=== PATIENT | female | born 1995 | race Caucasian/White ===

== ENCOUNTER → 2017-05-31 | Outpatient (REF) | payer OTHER ==
[~2017-05-31] MED LIST: MICR1TAB11 PO
[2017-05-31 19:26] LABS: PERCENT SATURATION 25.5 % (13.2-37.4)
== END ==
LOC: M LAB REF 17:35
PROVIDERS: ATTEND Internal Medicine
DX: K29.70 Gastritis, unspecified, without bleeding (principal)

== ENCOUNTER 2017-07-09 10:33 | Outpatient (CLI) | payer BC, OTHER ==
[~2017-07-09] VITALS: Ht 175.3 cm; Wt 72.6 kg
[2017-07-09] MEDS ORDERED: NS 1,000 ML IV ONE (11:00)
[2017-07-09] MEDS ORDERED: PROPOFOL 200 MG/20 ML VIAL As Ordered ONE (12:29)
[2017-07-09] MEDS ORDERED: LIDOCAINE 2% INJ 100 MG/5 ML SDV (FOR ANES.) As Ordered ONE (12:29)
--- NOTE | 2017-07-09 12:41 | ROOR ---
Patient Name: Arsen Naidu Procedure Date: 07/09/2017 12:20 PM Date of : 1995 Age: 21 Room: [facility] Gender: Female Note Status: Finalized Procedure: Upper GI endoscopy Indications: Suspected esophageal reflux, Suspected gastro-esophageal reflux disease, Weight loss Providers: Jasper Londono MD Referring MD: Jillian Pineda DO Requesting Provider: Medicines: Monitored Anesthesia Care Complications: No immediate complications. Procedure: Pre-Anesthesia Assessment: - Prior to the procedure, a History and Physical was performed, and patient medications and allergies were reviewed. The patient is competent. The risks and benefits of the procedure and the sedation options and risks were discussed with the patient. All questions were answered and informed consent was obtained. Patient identification and proposed procedure were verified by the physician, the nurse and the elevators inspector in the procedure room. Mental Status Examination: alert and oriented. Airway Examination: normal oropharyngeal airway and neck mobility. Respiratory Examination: clear to auscultation. CV Examination: normal. Prophylactic Antibiotics: The patient does not require prophylactic antibiotics. Prior Anticoagulants: The patient has taken no previous anticoagulant or antiplatelet agents. ASA Grade Assessment: I - A normal, healthy patient. After reviewing the risks and benefits, the patient was deemed in satisfactory condition to undergo the procedure. The anesthesia plan was to use monitored anesthesia care (MAC). Immediately prior to administration of medications, the patient was re-assessed for adequacy to receive sedatives. The heart rate, respiratory rate, oxygen saturations, blood pressure, adequacy of pulmonary ventilation, and response to care were monitored throughout the procedure. The physical status of the patient was re-assessed after the procedure. The Endoscope was introduced through the mouth, and advanced to the second part of duodenum. The upper GI endoscopy was accomplished without difficulty. The patient tolerated the procedure well. Findings: The examined esophagus was normal. Biopsies were obtained from the proximal and distal esophagus with cold forceps for histology of suspected eosinophilic esophagitis. The entire examined stomach was normal. Two biopsies were obtained with cold forceps for histology in the gastric antrum. No gross lesions were noted in the duodenal bulb and in the second portion of the duodenum. Biopsies for histology were taken with a cold forceps for evaluation of celiac disease. Impression: - Normal esophagus. Biopsied. - Normal stomach. - No gross lesions in the duodenal bulb and in the second portion of the duodenum. Biopsied. - Biopsies performed in the gastric antrum. Recommendation: - Patient has a contact number available for emergencies. The signs and symptoms of potential delayed complications were discussed with the patient. Return to normal activities tomorrow. Written discharge instructions were provided to the patient. - Resume previous diet. - Continue present medications. - Await pathology results. - Return to GI clinic as previously scheduled on 07/22/2017 at 3:00 PM. - Return to primary care physician. Jasper Londono MD Jasper Londono MD 07/09/2017 12:41:20 PM This report has been signed electronically. Number of Addenda: 0 Note Initiated On: 07/09/2017 12:20 PM Estimated Blood Loss: Estimated blood loss was minimal.
[2017-07-09 13:04] VITALS: BP 109/69
== END 2017-07-09 13:10 | disposition home or self-care (01) ==
LOC: M OPP 10:33
PROVIDERS: ATTEND Internal Medicine Gastroenterology
DX: R63.4 Abnormal weight loss (principal); R12 Heartburn; R51 Headache; R05 Cough; Z87.11 Personal history of peptic ulcer disease; Z88.0 Allergy status to penicillin; Z88.1 Allergy status to other antibiotic agents; Z79.899 Other long term (current) drug therapy; Z80.8 Family history of malignant neoplasm of other organs or systems

== ENCOUNTER → 2017-07-22 | Outpatient (CLI) | payer BC, OTHER ==
[2017-07-27 00:06] LABS: LYSOZYME 4.5 ug/mL (2.5-12.9)
[2017-07-30 00:55] LABS: Lyme Disease IgG/IgM Antibodie <0.91 ISR (0.00-0.90); Lyme Disease IgM Ab Quantitati <0.80 index (0.00-0.79); TOXOPLASMA IgG ABY <3.0 IU/mL (0.0-7.1); TREPONEMA ANTIBODY IgM <= 1.1 I.V. (.)
== END ==
LOC: M SMT 13:14
PROVIDERS: ATTEND Ophthalmology
DX: H30.21 Posterior cyclitis, right eye (principal)

== ENCOUNTER → 2017-07-26 | Outpatient (CLI) | payer BC, OTHER ==
--- NOTE | 2017-07-26 09:00 | REP ---
Abdominal right upper quadrant ultrasound: There is no cholelithiasis, gallbladder wall thickening or pericholecystic fluid. There is no intrahepatic or extrahepatic biliary duct dilatation, the common duct measures 1.8 mm in diameter. The hepatic parenchyma is homogeneous and otherwise unremarkable. The visualized portion of the pancreatic head is unremarkable. The body and tail are obscured by bowel gas. There is no right renal hydronephrosis, calculus, mass or cyst. The right kidney is normal size measuring 11 cm craniocaudad length. There is no free fluid. Impression: Essentially negative abdominal right upper quadrant ultrasound. The body and tail of the pancreas are obscured by bowel gas. Signed by Samir Stewart MD 07/26/2017 08:52 A
== END ==
LOC: M RAD 07:50
PROVIDERS: ATTEND Internal Medicine Gastroenterology
DX: R10.13 Epigastric pain (principal)